=== PATIENT | male | born 1955 | race Asian ===

== ENCOUNTER 2016-03-16 15:23 | Emergency (ER) | payer OTHER ==
[~2016-03-16] VITALS: Ht 175.3 cm; Wt 88.0 kg
[~2016-03-16 15:23] MED LIST: ALPR0.5T24 PO; AMOXICILLIN250 M2 PO; HYDR-2748 PO; HYDROCOD/HOM1 ML PO; MELOXICAM15 MG PO; TRAM50TA PO; VIAGRA100 MG PO
[2016-03-16 15:30] VITALS: TEMP 98
[2016-03-16 16:12] LABS: PLATELET COUNT 594 K/uL (142-355)
[2016-03-16 16:14] VITALS: BP 120/88
[2016-03-16 16:27] LABS: POTASSIUM 3.6 mmol/L (3.6-5.2); SODIUM 128 mmol/L (136-145)
== END 2016-03-16 16:30 | disposition home or self-care (01) ==
LOC: ED 15:23
DX: K62.1 Rectal polyp (principal); K64.4 Residual hemorrhoidal skin tags; C34.92 Malignant neoplasm of unspecified part of left bronchus or lung
CPT/HCPCS: 36415; 80053; 82272; 85027; 99283

== ENCOUNTER 2016-08-04 16:53 | Emergency (ER) | payer OTHER ==
[~2016-08-04] VITALS: Ht 175.3 cm; Wt 88.0 kg
[2016-08-04 19:45] LABS: PLATELET COUNT 272 K/uL (142-355)
[2016-08-04 19:49] LABS: POTASSIUM 3.8 mmol/L (3.6-5.2); SODIUM 132 mmol/L (136-145)
[2016-08-04 21:50] VITALS: BP 120/88; TEMP 98.4
== END 2016-08-04 21:45 | disposition home or self-care (01) ==
LOC: ED 16:53
PROVIDERS: Specialist
DX: R10.12 Left upper quadrant pain (principal); R10.11 Right upper quadrant pain; C34.92 Malignant neoplasm of unspecified part of left bronchus or lung
CPT/HCPCS: 36415; 80053; 81000; 82150; 83690; 85027; 85379; 96372; 99283; J1885; Q9963

== ENCOUNTER 2017-01-08 08:40 | Emergency (ER) | payer OTHER ==
[~2017-01-08] VITALS: Ht 175.3 cm; Wt 83.9 kg
[2017-01-08 09:57] LABS: PLATELET COUNT 522 K/uL (142-355)
[2017-01-08 10:07] LABS: POTASSIUM 3.6 mmol/L (3.6-5.2); SODIUM 135 mmol/L (136-145)
[2017-01-08 15:43] VITALS: BP 143/84; TEMP 98.1
== END 2017-01-08 15:44 | disposition short-term general hospital (02) ==
LOC: ED 08:40
PROVIDERS: Specialist
DX: R10.84 Generalized abdominal pain (principal); C34.90 Malignant neoplasm of unspecified part of unspecified bronchus or lung
CPT/HCPCS: 36415; 80053; 81000; 85027; 96374; 96375; 99284; J1885; J2175; J2405; Q9963

== ENCOUNTER 2017-01-08 15:49 | Outpatient (CLI) | payer OTHER | END 2017-01-08 16:23 | disposition short-term general hospital (02) | LOC: AMB 15:49 | DX: R10.84 Generalized abdominal pain (principal); C34.90 Malignant neoplasm of unspecified part of unspecified bronchus or lung | CPT/HCPCS: A0425; A0429 ==

== ENCOUNTER 2017-12-19 09:13 | Outpatient (CLI) | payer OTHER | END 2017-12-19 22:39 | disposition home or self-care (01) | LOC: MRI 09:13 | DX: M54.5 Low back pain (principal); M25.562 Pain in left knee | CPT/HCPCS: 36415; 82565; 84520; A9576 ==

== ENCOUNTER 2019-05-18 11:20 | Emergency (ER) | payer OTHER ==
[~2019-05-18] VITALS: Ht 175.3 cm; Wt 59.9 kg
[2019-05-18 11:24] VITALS: TEMP 97.5
[2019-05-18 12:01] LABS: POTASSIUM 4.2 mmol/L (3.6-5.2); SODIUM 130 mmol/L (136-145)
[2019-05-18 12:03] LABS: PLATELET COUNT 955 K/uL (142-355)
[2019-05-18 14:16] VITALS: BP 100/85
== END 2019-05-18 14:19 | disposition home or self-care (01) ==
LOC: ED 11:20
PROVIDERS: Emergency Medicine
DX: M79.18 Myalgia, other site (principal); R07.81 Pleurodynia; R07.89 Other chest pain; G89.29 Other chronic pain; C34.90 Malignant neoplasm of unspecified part of unspecified bronchus or lung; R00.0 Tachycardia, unspecified; F17.210 Nicotine dependence, cigarettes, uncomplicated
CPT/HCPCS: 80053; 82550; 84484; 85007; 85027; 85379; 96374; 96375; 96376; 99284; J1885; J2270; J2405; Q9963

== ENCOUNTER 2019-06-01 18:44 | Inpatient (IN) | payer OTHER ==
[~2019-06-01] VITALS: Ht 175.3 cm; Wt 59.4 kg
[2019-06-01 18:50] VITALS: BP 94/52; TEMP 98.7
[2019-06-01 19:25] LABS: PLATELET COUNT 379 K/uL (142-355)
[2019-06-01 19:33] LABS: PARTIAL THROMBOPLASTIN TIME 29.7 SECONDS (24.5-33.6); POTASSIUM 4.7 mmol/L (3.6-5.2)
[2019-06-01 21:10] VITALS: BP 114/69; TEMP 98.7
[2019-06-01 22:26] VITALS: BP 114/71; TEMP 98.6; Ht 175.3 cm; Wt 59.4 kg
[2019-06-01 23:40] VITALS: BP 89/53; TEMP 98.2
[2019-06-02] VITALS (7 sets, daily range): BP systolic 89–106; BP diastolic 53–64; TEMP 98.2–98.8
[2019-06-02] MEDS ORDERED: CYCLOBENZAPRINE10 MG PO (00:59)
[2019-06-02] MEDS ORDERED: COZAAR100 MG PO (01:02)
[2019-06-02] MEDS ORDERED: MAG OXIDE400 MG PO (01:02)
[2019-06-02 11:18] LABS: PLATELET COUNT 371 K/uL (142-355)
== END 2019-06-02 14:40 | disposition home or self-care (01) | DRG 204 ==
LOC: ED 18:44 → MED/SURG 21:30
PROVIDERS: Internal Medicine; ADMIT Emergency Medicine
PROC: 30233N1 Transfusion of Nonautologous Red Blood Cells into Peripheral Vein, Percutaneous Approach (ICD-10-PCS; principal; 2019-06-01)
DX: R04.2 Hemoptysis (principal); C34.90 Malignant neoplasm of unspecified part of unspecified bronchus or lung; I10 Essential (primary) hypertension; E78.49 Other hyperlipidemia; R07.89 Other chest pain
CPT/HCPCS: 36415; 80053; 85027; 85610; 85730; 86850; 86900; 86901; 86922; 94760; 96360; 99284; J1940; P9016; Q9963